=== PATIENT | male | born 1955 | race Caucasian/White ===

== ENCOUNTER 2017-03-26 02:32 | Inpatient (IN) | payer OTHER ==
[~2017-03-26] VITALS: Ht 175.3 cm; Wt 85.7 kg
[~2017-03-26 02:32] MED LIST: AVAPRO300 M1 PO
[2017-03-26] MEDS ORDERED: MS CONTIN15 M2 PO (10:37)
[2017-03-26] MEDS ORDERED: MIRALAX17 G1 PO (10:37)
[2017-03-26] MEDS ORDERED: DILAUDID2 M1 PO (10:37)
[2017-03-26] MEDS ORDERED: COLACE100 M1 PO (10:37)
[2017-03-26] MEDS ORDERED: PRILOSEC OTC20 M1 PO (10:37)
[2017-03-26] MEDS ORDERED: ASPIRIN EC325 M2 PO (10:37)
--- NOTE | 2017-03-26 10:40 | Patient Discharge Instructions ---
Discharge Instructions General Discharge Information You were seen/treated for: Right hip pain You had these procedures: Right total hip arthroplasty, anterior approach Watch for these problems: Increasing pain despite the use of pain medication, redness, warmth, or swelling. Inability to bear weight on operative leg. Drainage of any type from incision. Fever greater than 101.5. Do not soak the wound: Yes Daily wet to dry dressings: No No bath, but you may shower: Yes Other wound care: Keep wound clean and dry Special Instructions: Incision: Dry dressing. May shower. No baths. No ointments of any kind. Ice as needed. Bowel regimen: Colace and or MiraLAX Weight-bearing as tolerated Follow-up with Dr. Wallace in 6 weeks. Call office for fevers greater than 101.5, excessive drainage or inability to bear weight on operative extremity. Visiting nurse will change dressing. Diet Continue normal diet: Yes Recommended Diet: Regular Additional DIET Information: Advance as tolerated Activity Full Activity/No Limits: No Activity Self Limited: Yes Pounds, do NOT lift more than: 10 Additional ACTIVITY Info: Weight-bear as tolerated Acute Coronary Syndrome Inclusion Criteria At DC or during hospital stay patient has or had the following: ACS DIAGNOSIS No Discharge Core Measures Meds if any: Prescribed or Continued at Discharge Meds if any: NOT Prescribed or Continued at Discharge Congestive Heart Failure Inclusion Criteria At DC or during hospital stay patient has or had the following: CHF DIAGNOSIS No Discharge Core Measures Meds if any: Prescribed or Continued at Discharge Meds if any: NOT Prescribed or Continued at Discharge Cerebrovascular accident Inclusion Criteria At DC or during hospital stay patient has or had the following: CVA/TIA Diagnosis No Discharge Core Measures Meds if any: Prescribed or Continued at Discharge Meds if any: NOT Prescribed or Continued at Discharge Venous thromboembolism Inclusion Criteria VTE Diagnosis No VTE Type NONE VTE Confirmed by (Test) NONE Discharge Core Measures - Per Current guidelines, there needs to be overlap - treatment for the first 5 days of Warfarin therapy. - If discharged on Warfarin prior to 5 days of - overlap therapy, the patient will need to be - assessed for post discharge needs including - *Post discharge parental anticoagulation - *Warfarin and/or parental anticoagulation education - *Follow up date to check INR post discharge At least 5 days overlap therapy as Inpatient No Meds if any: Prescribed or Continued at Discharge Note: Overlap Therapy is Warfarin and Anticoagulant Meds if any: NOT Prescribed or Continued at Discharge
--- NOTE | 2017-03-26 10:41 | Admission Core Measures ---
Admission Meds I reviewed the following Meds: Current Medications Sig/Uche Start time Last Medication Dose Stop Time Status Admin Acetaminophen 975 MG ONCE 03/26 0000 NR (Tylenol) 03/26 2359 Cefazolin Sodium 2,000 MG ONCE 03/26 NR (Kefzol-Ancef Inj) 03/26 2359 Losartan Potassium 100 MG DAILY 03/26 1000 AC (Cozaar) Oxycodone HCl 10 MG ONCE 03/26 0000 NR (Roxicodone) 03/26 2359 Acute Coronary Syndrome Inclusion Criteria ACS Diagnosis No Inpatient Core Measures LDL Reminder: If No, please order W/I first 24hr of stay Congestive Heart Failure Inclusion Criteria CHF Diagnosis No Cerebrovascular accident Inclusion Criteria CVA/TIA Diagnosis No Inpatient Core Measures Bedside Swallow Eval Reminder: If BSE failed, place ST order Antithrombotic Reminder: Order Antithrombotic Medication by end of day 2 Antithrombotic Reminder: Document Reason Antithrombotic Not ordered by end of day 2 AFIB/Flutter Reminder: If Present, add to problem list AFIB/Flutter Reminder: Order Anticoag Medication for pts with AFIB/Flutter Atherosclerosis Reminder: If Present, add to problem list LDL Reminder: If No, please order W/I first 24hr of stay PT Order Reminder: If No, please order Venous thromboembolism Inpatient Core Measures VTE Risk Factors: Age > 40, [facility] prophylaxis d/t No contraindications No VTE Pharm Prophylaxis d/t No contraindications Inclusion Criteria - Per Current guidelines, there needs to be overlap - treatment for the first 5 days of Warfarin therapy. - Parenteral Anticoagulation (IV or SC) needs to be - given along with Warfarin therapy. VTE Diagnosis No VTE Type NONE VTE Confirmed by (Test) NONE Problem List As ranked by this Provider includes Assessment & Plan 1. Unilateral primary osteoarthritis, right hip HOME MEDS Home Med List Aspirin (Ecotrin*) 325 MG TABLET.DR 1 TAB PO BID ANTICOAGULATION Docusate Sodium (Colace) 100 MG CAPSULE 1 CAP PO BID CONSITPATION Hydromorphone HCl (Dilaudid) 2 MG TABLET 1-2 TAB PO Q4-6 PRN PAIN Irbesartan (Avapro) 300 MG TABLET 1 TAB PO DAILY HTN (Reported) Morphine Sulfate (Ms Contin) 15 MG TABLET.ER 1 TAB PO BID PAIN Omeprazole Magnesium (Prilosec Otc) 20 MG TABLET.DR 1 TAB PO DAILY GI PROTECTION Polyethylene Glycol 3350 (Miralax) 17 GRAM POWD.PACK 1 PAC PO DAILY CONSTIPATION
--- NOTE | 2017-03-26 10:44 | Surgical Discharge Summary ---
Visit Information Visit Dates Admission Date: 03/26/17 Discharge Date: 03/27/17 History of Present Illness Chief Complaint: Right hip pain secondary to unilateral primary osteoarthritis Medical History Isolation History: Standard Surgical History Pertinent Surgical History: non-contributory Review of Systems: See history and physical Hospital Course Course Attending Physician: GOOD GRIGSBY MD Primary Care Physician: SAM EDMONDS MD Hospital Course: Shukri was admitted to the hospital on March 26 2017 for an elective right total hip replacement. He tolerated the procedure well and was transferred to a general surgical floor. There his vital signs remained stable and his neurovascular status remained intact. His diet was advanced and tolerated. He voided spontaneously. His pain was controlled with oral pain medications. He was evaluated and treated by physical therapy. He was deemed appropriate for discharge. Allergies: Coded Allergies: No Known Allergies (03/24/17) Disposition Summary Disposition Principal Diagnosis: Right hip unilateral primary osteoarthritis Additional Diagnosis: None Discharge Disposition: home health services Discharge Instructions General Discharge Information Code Status: Full Code Patient's Diet: Regular, advance as tolerated Patient's Activity: Weight-bear as tolerated on right leg Follow-Up Instructions/Appts: Incision: Dry dressing. May shower. No baths. No ointments of any kind. Ice as needed. Bowel regimen: Colace and or MiraLAX Weight-bearing as tolerated Follow-up with Dr. Grigsby in 6 weeks. Call office for fevers greater than 101.5, excessive drainage or inability to bear weight on operative extremity. Visiting nurse will change dressing. Medications at Discharge Discharge Medications: Continue taking these medications: Irbesartan (Avapro) 300 MG TABLET 1 Tablet ORAL DAILY Comments: NOT GIVEN IN HOSPITAL; [place] GIVEN 03/27/17 @0830AM Start taking the following new medications: Aspirin (Ecotrin*) 325 MG TABLET. 1 Tablet ORAL TWICE DAILY Qty = 60 No Refills Comments: Last Taken:03/27/17 Time: 0800AM Docusate Sodium (Colace) 100 MG CAPSULE 1 Capsule ORAL TWICE DAILY Qty = 14 No Refills Instructions: DISCONTINUE USE IF YOU DEVELOP LOOSE STOOL OR DIARRHEA Comments: Last Taken:03/27/17 Time: 0800AM Hydromorphone HCl (Dilaudid) 2 MG TABLET 1-2 Tablet ORAL EVERY 4-6 HOURS as needed for PAIN Qty = 36 No Refills Comments: NOT GIVEN Polyethylene Glycol 3350 (Miralax) 17 GRAM POWD.PACK 1 Packet ORAL DAILY Qty = 7 No Refills Instructions: dissolve in water, DISCONTINUE USE IF YOU DEVELOP LOOSE STOOL OR DIARRHEA Comments: NOT GIVEN Morphine Sulfate (Ms Contin) 15 MG TABLET.ER 1 Tablet ORAL TWICE DAILY Qty = 2 No Refills Comments: NOT GIVEN Omeprazole Magnesium (Prilosec Otc) 20 MG TABLET.DR 1 Tablet ORAL DAILY Qty = 30 No Refills Comments: Last Taken: 03/27/17 Time: 0600AM
--- NOTE | 2017-03-26 12:16 | RADIOLOGY REPORT ---
EXAMINATION: XR HIP, RIGHT CLINICAL INFORMATION: Status post right hip replacement. COMPARISON: None TECHNIQUE: AP and crosstable lateral views (3 images) of the right hip. FINDINGS: Bones and soft tissues are normal. No fracture. Alignment is anatomic. Hip joint space is maintained. IMPRESSION: Intact appearing right total hip arthroplasty. Expected postsurgical changes.
[2017-03-26 12:24] VITALS: BP 110/70
--- NOTE | 2017-03-26 12:30 | NUR ---
PATIENT ADMITTED TO UNIT FROM PACU. S/P RIGHT TOTAL HIP REPLACEMENT. ARRIVED VIA STRETCHER ALERT AND ORIENTATED X3. VSS. CARDIAC STABLE. PEARL LUNGS CLEAR IN ALL LOBES. RIGHT HIP DSG CDI. POSITIVE CMS. PAIN 1-210. ORIENTATED TO ROOM AND CALL LIGHT. AT BEDSIDE. WILL FOLLOW PLAN OF CARE.
--- NOTE | 2017-03-26 13:38 | PN- Orthopedic ---
Subjective Subjective: POST-OP NOTE: No complaints. Reports pain controlled. Tolerating food. No nausea. Due to void this afternoon. Awaiting to get up with PT. Currently denies dizziness. No shortness of breath. No chest pains. Objective Vital Signs and I&Os Vital Signs Date Time Temp Pulse Resp B/P B/P Pulse O2 O2 Flow FiO2 Mean Ox Delivery Rate 03/26 1224 97.9 71 20 110/70 97 Room Air Room Air Intake & Output 03/26 1600 03/26 0803/26 0000 03/25 1600 03/25 0800 03/25 0000 Intake Total Output Total Balance Patient 189 lb 190 lb Weight Weight Reported by Patient Measurement Method Physical Exam: General - alert & oriented x 3. comfortable. no acute distress. Lungs - clear bilaterally. no w/r/r. Cardiac - s1s2. reg. Abdomen - soft. nontender. Extremities - warm bilaterally. no c/c/e. calves soft and nontender b/l. right hip dressing c/d/i. nvi. Assessment/Plan Assessment/Plan This 61 year old white male is POD#0 s/p right total hip replacement, anterior approach regular diet as tolerated. d/c iv fluids after able to void. pain control as ordered PT eval asa bid veronika-operative ancef x 2 doses f/u am labs d/c planning to home tomorrow will d/w Core Measures/Miscellaneous Venous Thromboembolism VTE Risk Factors: Age > 40, Surgery VTE Contraindications: No Contraindications VTE Diagnosis: No VTE Type: NONE VTE Confirmed by (Test): NONE Beta Doyle Is Beta Doyle a Home Med? No Antibiotics Is Patient on Antibiotics? Yes If Yes: prophylaxis
[2017-03-26 16:03] VITALS: BP 118/76
--- NOTE | 2017-03-26 18:37 | Operative Report ---
Operative/Inv Procedure Report Surgery Date: 03/26/17 Name of Procedure: Right total hip replacement Pre-Operative Diagnosis: Primary right hip DJD Post-Operative Diagnosis: Same Estimated Blood Loss: 350 Surgeon/Charm Filter Operator Helper: CALISTA LEE,GOOD Malone Anesthesia: block Operative/Procedure Note Note: Description of Procedure: The patient was taken to the operating room and positively identified. After induction of spinal anesthesia and administration of appropriate pre-operative antibiotics, the patient was positioned supine on the operating room table and all bony prominences were well padded. After performing a surgical timeout, the right lower extremity was prepped and draped in the usual sterile fashion. A direct anterior approach was made to the right hip. The incision was carried sharply through superficial soft tissues to the level of the fascia. Meticulous hemostasis was maintained with Bovie electocautery. The fascia over the tensor fascia fatimah muscle was opened sharply and the interval between the TFL and the sartorius was entered bluntly taking care to stay lateral to the lateral femoral cutaneous nerve. Retractors were placed around the femoral neck and the pericapsular fat was identified. The ascending branches of the lateral femoral circumflex vessels were identified and carefully coagulated. The pericapsular fat and anterior capsule were then resected. A napkin ring osteotomy was performed and the femoral head was removed without difficulty. Attention was then turned to the acetabulum. After appropriate placement of retractors, the acetabulum was exposed. Soft tissue was cleaned from the acetabular margin and notch. Overhanging osteophytes were removed and the teardrop was exposed. The acetabulum was then sequentially reamed to accept a 60 mm [place] Tritanium hemispherical solid back shell. This was impacted into place in the appropriate position and fitted with a 36 mm Trident X3 zero degree eccentric polyethylene insert. Attention was then turned to the femur. After performing the appropriate ligament releases, the proximal femur was exposed. It was then sequentially broached to accept a size 8 Eneida Secur- Fit Advanced stem. This was trialed for leg length and stability. The trial component was removed and the final component was impacted into place. The trunnion was carefully cleaned and fit with a 36 mm, +0 Biolox delta ceramic femoral head. The hip was reduced and put through a full range of motion and found to be stable. The articular space was then irrigated with sterile saline. The periarticular soft tissues were infilitrated with Marcaine. The fascial layer was closed with interrupted #1 vicryl suture and the skin was re-approximated with interrupted 2 -0 vicryl. The skin was closed with a running 3-0 V-Lock suture. Steri-strips and a sterile dressing were applied. The patient was awakened and taken to the recovery room in satisfactory condition.
[2017-03-26 20:05] VITALS: BP 120/70
[2017-03-26 23:12] VITALS: BP 130/70
[2017-03-27 06:39] VITALS: BP 128/72
--- NOTE | 2017-03-27 08:03 | PN- Orthopedic ---
Subjective Subjective: 61-year-old male postop day 1 status post right total hip arthroplasty anterior approach. He has no complaints, he is voiding normally, his appetite is good, he is passing gas, no bowel movement yet. He has been up and ambulatory 3 times without difficulty. He has minimal pain in his right hip, states is less than what he had preop. Objective Vital Signs and I&Os Vital Signs Date Time Temp Pulse Resp B/P B/P Pulse O2 O2 Flow FiO2 Mean Ox Delivery Rate 03/27 0639 98.1 68 18 128/72 97 Room Air 03/26 2312 98.3 77 18 130/70 96 Room Air 03/26 2312 98.3 77 18 130/70 96 Room Air 03/26 2005 98.2 85 20 120/70 97 Room Air 03/26 1603 98.1 85 18 118/76 99 Room Air 03/26 1224 97.9 71 20 110/70 97 Room Air Room Air Intake & Output 03/27 1600 03/27 0800 03/27 0000 03/26 1600 03/26 0800 03/26 0000 Intake Total 400 825 Output Total 350 500 450 Balance -350 -100 375 Intake, IV 300 225 Intake, Oral 100 600 Number 0 Bowel Movements Output, Urine 350 500 450 Patient 189 lb Weight Weight Reported by Patient Measurement Method Physical Exam: Well-developed well-nourished no apparent distress. HEENT: Atraumatic, extraocular motion intact Neck: Supple, no lymphadenopathy Respiratory: No respiratory distress Extremities: No edema RIGHT lower extremity hip dressing in place, Dressing clean dry and intact with minimal bloody staining Mild thigh edema No signs of infection. No shortening or rotation Hip range of motion is limited and without unexpected pain Neurovascularly intact distally Bilateral calves are supple, nontender. Neuro: Alert and oriented x3 Psych: Mood affect normal, normal memory normal judgment. Skin: Warm and dry, no rash on exposed skin Results Last 48 Hours of Labs: Laboratory Tests 03/27 0615 Chemistry Sodium Pending Potassium Pending Chloride Pending Carbon Dioxide Pending Anion Gap Pending BUN Pending Creatinine Pending BUN/Creatinine Ratio Pending Hematology CBC w Diff Pending WBC Pending RBC Pending Hgb Pending Hct Pending MCV Pending MCH Pending RDW Pending Plt Count Pending MPV Pending PUBS MCHC Pending Assessment/Plan Assessment/Plan This 61 year old white male is POD#1 s/p right total hip replacement, anterior approach regular diet as tolerated. d/c iv fluids pain control as ordered Cleared PT asa bid veronika-operative ancef x 2 doses completed f/u am labs, if okay, d/c planning to home today with [facility] Core Measures/Miscellaneous Venous Thromboembolism VTE Risk Factors: Age > 40, Surgery VTE Contraindications: No Contraindications VTE Diagnosis: No VTE Type: NONE VTE Confirmed by (Test): NONE Beta Doyle Is Beta Doyle a Home Med? No Antibiotics Is Patient on Antibiotics? Yes If Yes: prophylaxis
[2017-03-27 08:40] LABS: ABSOLUTE BASOPHIL COUNT 0 /CUMM (0.0-0.2); ABSOLUTE EOSINOPHIL COUNT 0 /CUMM (0.0-0.7); ABSOLUTE GRANULOCYTE CT 6.2 /CUMM (1.4-6.5); ABSOLUTE LYMPH COUNT 0.9 /CUMM (1.2-3.4); ABSOLUTE MONOCYTE COUNT 0.8 /CUMM (0.10-0.60); BASOPHIL % 0.3 % (0.0-2.0); EOSINOPHIL % 0.6 % (0-5); GRANULOCYTE % 77.3 % (42.2-75.2); HEMATOCRIT 31.6 % (42-52); MEAN CORPUSCULAR HGB 29.6 PG (27.0-31.0); MEAN CORPUSCULAR HGB CONC 33.8 G/DL (33.0-37.0); MEAN CORPUSCULAR VOLUME 87.6 FL (80.0-94.0); MEAN PLATELET VOLUME 9.4 FL (7.4-10.4); PLATELET COUNT 143 /CUMM (130-400); RBC DISTRIBUTION WIDTH 12.9 % (11.5-14.5); RED BLOOD CELL CT 3.61 /CUMM (4.70-6.10)
[2017-03-27 09:15] VITALS: BP 120/70
== END 2017-03-27 13:49 | disposition home health service (06) | DRG 470 ==
LOC: SDA 02:32 → ENRESERV 11:28 → 2NB 12:05 → ENPENDDIS 03-27 08:09 → 2NB 03-27 13:49
PROVIDERS: Nurse Practitioner; ADMIT Orthopaedic Surgery
PROC: 0SR903A Replacement of Right Hip Joint with Ceramic Synthetic Substitute, Uncemented, Open Approach (ICD-10-PCS; principal; 2017-03-26)
DX: M16.11 Unilateral primary osteoarthritis, right hip (principal); I10 Essential (primary) hypertension; E78.5 Hyperlipidemia, unspecified
CPT/HCPCS: 2NBSP; 36415; 73502-RT; 82436; 88304; 97116-GO; 97161-GP; 97530-GO; J0131; J0690; J0735; J2405; J2550; J3490; J7042